=== PATIENT | female | born 2000 | race Caucasian/White ===

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

== ENCOUNTER → 2020-11-01 10:55 | Observation (INO) ==
[2020-11-01 01:00] LABS: Bilirubin,Urine Negative (Negative); Blood,Urine Negative (Negative); Clarity,Urine Clear (Clear); Color,Urine Colorless (Yellow); Glucose,Urine (UA) Normal (Normal); Ketones,Urine Negative (Negative); Leukocyte Esterase,Urine Negative (Negative); Nitrite,Urine Negative (Negative); PH,Urine 6.5 pH Units (5.0-8.0); Protein,Urine Negative (Neg-Trace); Specific Gravity,Urine 1.005 (1.010-1.025); Urobilinogen,Urine Normal (Normal)
[2020-11-01 01:09] LABS: Amphetamine Screen,Urine Negative ng/mL (Cutoff=1000); Barbiturate Screen,Urine Negative ng/mL (Cutoff=200); Benzodiazepines Screen,Urine Negative ng/mL (Cutoff=200); Cannabinoid Screen,Urine Positive ng/mL (Cutoff = 50); Cocaine Screen,Urine Negative ng/mL (Cutoff= 300); Opiate Screen,Urine Negative ng/mL (Cutoff=300); Phencyclidine Screen,Urine Negative ng/mL (Cutoff=25)
[2020-11-01 02:16] LABS: Rubella IgG Antibody POSITIVE (POSITIVE); Varicella Zoster IgG Antibody Negative
[2020-11-01 02:33] LABS: Hepatitis B Surface Antigen Nonreactive (Nonreactive)
[2020-11-01 03:02] LABS: HIV-1&2 Antibody & p24 Ag Nonreactive (Nonreactive)
== END | disposition home or self-care (01) ==
LOC: 1NENULAB
PROVIDERS: ADMIT Advanced Practice Midwife; ATTEND Advanced Practice Midwife

== ENCOUNTER 2021-02-06 15:49 | Observation (INO) ==
[2021-02-06 17:49] LABS: Bilirubin,Urine Negative (Negative); Blood,Urine Negative (Negative); Clarity,Urine Clear (Clear); Color,Urine Colorless (Yellow); Glucose,Urine (UA) Normal (Normal); Ketones,Urine Negative (Negative); Leukocyte Esterase,Urine Small (Negative); Nitrite,Urine Negative (Negative); PH,Urine 7.5 pH Units (5.0-8.0); Protein,Urine Negative (Neg-Trace); RBC,Urine 0-3 per hpf (0-3); Specific Gravity,Urine 1.006 (1.010-1.025); Squamous Epithelial Cell,Urine Few per hpf (None-Few); Urobilinogen,Urine Normal (Normal)
[2021-02-06 20:18] LABS: Basophils % 0.3 %; Eosinophils # 0.1 K/mcL (0.0-0.6); Eosinophils % 0.8 %; Hematocrit 31.9 % (35.3-44.9); Hemoglobin 9.9 g/dL (11.5-15.4); Immature Granulocytes % 0.9 % (0-4); Lymphocytes # 1.6 K/mcL (0.6-4.6); Lymphocytes % 14.9 %; Mean Corpuscular Hemoglobin 26.6 pg (28.0-33.3); Mean Corpuscular Volume 85.8 fL (83.0-100.0); Mean Platelet Volume 9.9 fL (9.4-12.4); Monocytes # 0.7 K/mcL (0.0-1.3); Monocytes % 6.6 %; Platelet Count 243 K/mcL (140-400); Red Blood Count 3.72 M/mcL (3.82-4.97); Red Cell Distribution Width 13.6 % (11.5-14.5); Segmented Neutrophils % 76.5 %; White Blood Count 10.5 K/mcL (4.3-11.1)
[2021-02-06 20:23] LABS: BUN/Creatinine Ratio 7 (6-26); Blood Urea Nitrogen 4 mg/dL (6-20); Calcium 8.5 mg/dL (8.6-10.3); Carbon Dioxide 22 mEq/L (23-29); Chloride 108 mEq/L (98-107); Glucose 74 mg/dL (70-105); Osmolality,Calculated 278 (280-300); Potassium 3.7 mEq/L (3.5-5.1); Sodium 136 mEq/L (136-145); eGFR For African Americans > 60 (> 60); eGFR For Non-African Americans > 60 (> 60)
== END 2021-02-06 19:42 | disposition home or self-care (01) ==
LOC: 1NENULAB
PROVIDERS: ADMIT Registered Nurse; ATTEND Registered Nurse

== ENCOUNTER 2021-03-22 06:56 | Observation (INO) ==
[2021-03-22] MEDS ORDERED: *HR* FentaNYL (PF) 100 MCG/2 ML VIAL ONE (07:47)
[2021-03-22] MEDS ORDERED: *HR* Morphine Sulfate/PF 10 MG/10 ML AMPUL ONE (07:47)
[2021-03-22] MEDS ORDERED: EPHEDrine 50 MG/ML VIAL ONE (07:47)
[2021-03-22] MEDS ORDERED: Ondansetron 4 MG/2 ML VIAL ONE (07:49)
[2021-03-22] MEDS ORDERED: Ketorolac 30 MG/ML VIAL ONE (07:50)
[2021-03-22] MEDS ORDERED: Acetaminophen IV 0 MG/0 ML BAG IVPB ONE (07:50)
[2021-03-22] MEDS ORDERED: Ringers Solution, Lactated 1,000 ML ONE (08:13)
[2021-03-22] MEDS ORDERED: Metoclopramide 10 MG/2 ML VIAL IVP ONE (08:20)
[2021-03-22] MEDS ORDERED: Oxytocin 20 units/ LR 1000 mL 20 UNIT/1,000 ML BAG IVC ONE (08:20)
[2021-03-22] MEDS ORDERED: Gentamicin 280 MG in 0.9 % Sodium Chloride 100 ML IVPB ONE (08:20)
[2021-03-22] MEDS ORDERED: Ringers Solution, Lactated 1,000 ML IVC ONE (08:20)
[2021-03-22] MEDS ORDERED: Famotidine 20 MG/2 ML VIAL IVP ONE (08:20)
[2021-03-22] MEDS ORDERED: Clindamycin 900 MG/50 ML 900 MG/50 ML IV.SOLN IVPB ONE (08:20)
[2021-03-22 08:51] LABS: Basophils % 0.2 %; Eosinophils # 0.1 K/mcL (0.0-0.6); Eosinophils % 0.5 %; Hematocrit 33.6 % (35.3-44.9); Hemoglobin 10.3 g/dL (11.5-15.4); Immature Granulocytes % 0.7 % (0-4); Lymphocytes # 2.1 K/mcL (0.6-4.6); Lymphocytes % 22.5 %; Mean Corpuscular HGB Conc 30.7 g/dL (31.6-35.5); Mean Corpuscular Hemoglobin 25.2 pg (28.0-33.3); Mean Corpuscular Volume 82.2 fL (83.0-100.0); Mean Platelet Volume 10.7 fL (9.4-12.4); Monocytes # 0.9 K/mcL (0.0-1.3); Neutrophils # 6.1 K/mcL (1.6-8.9); Platelet Count 250 K/mcL (140-400); Red Blood Count 4.09 M/mcL (3.82-4.97); Red Cell Distribution Width 15.1 % (11.5-14.5); Segmented Neutrophils % 66.1 %; White Blood Count 9.2 K/mcL (4.3-11.1)
[2021-03-22 09:26] LABS: Influenza A PCR Negative (Negative); Influenza B PCR Negative (Negative); Resp. Syncytial Virus PCR Negative (Negative)
[2021-03-22 09:32] LABS: SARS-CoV-2 by PCR (In House) Negative (Negative)
[2021-03-22 11:35] LABS: Amphetamine Screen,Urine Negative ng/mL (Cutoff=1000); Barbiturate Screen,Urine Negative ng/mL (Cutoff=200); Benzodiazepines Screen,Urine Negative ng/mL (Cutoff=200); Cannabinoid Screen,Urine Negative ng/mL (Cutoff = 50); Cocaine Screen,Urine Negative ng/mL (Cutoff= 300); Opiate Screen,Urine Negative ng/mL (Cutoff=300); Phencyclidine Screen,Urine Negative ng/mL (Cutoff=25)
== END 2021-03-22 11:37 | disposition home or self-care (01) | DRG 566 ==
LOC: INTOOBSV 06:56 → 1NENULAB 06:56 → EDSTATUS 10:00
PROVIDERS: ADMIT Obstetrics & Gynecology; ATTEND Obstetrics & Gynecology

== ENCOUNTER 2021-04-01 20:10 | Inpatient (IN) ==
[~2021-04-01 20:10] MED LIST changes: +Famotidine 20 MG/2 ML VIAL IVP ONE; -Famotidine 20 MG/2 ML VIAL IVP PRN; +Metoclopramide 10 MG/2 ML VIAL IVP ONE; -Metoclopramide 10 MG/2 ML VIAL IVP PRN; -Ondansetron 4 MG/2 ML VIAL IVP PRN; +Ringers Solution, Lactated 1,000 ML IVC ONE; -metroNIDAZOLE 500 MG TABLET PO ONE
[2021-04-01] MEDS ORDERED: Clindamycin 900 MG/50 ML 900 MG/50 ML IV.SOLN IVPB ONE (20:13)
[2021-04-01] MEDS ORDERED: Promethazine 6.25 MG in Water for inj. (sterile) 20 ML IVPB PRN (20:17)
[2021-04-01] MEDS ORDERED: *HR* HYDROmorphone PF 0.5 MG/0.5 ML SYRINGE IVP PRN (20:17)
[2021-04-01] MEDS ORDERED: Oxytocin 20 units/ LR 1000 mL 20 UNIT/1,000 ML BAG IVC ONE (20:26)
[2021-04-01] MEDS ORDERED: Acetaminophen IV 1,000 MG/100 ML BAG IVPB ONE (20:28)
[2021-04-01] MEDS ORDERED: *HR* FentaNYL (PF) 100 MCG/2 ML VIAL ONE (20:29)
[2021-04-01] MEDS ORDERED: *HR* Morphine Sulfate/PF 10 MG/10 ML AMPUL ONE (20:29)
[2021-04-01] MEDS ORDERED: Ondansetron 4 MG/2 ML VIAL ONE (20:30)
[2021-04-01] MEDS ORDERED: EPHEDrine 50 MG/ML VIAL ONE (20:30)
[2021-04-01 20:34] LABS: Basophils % 0.2 %; Eosinophils % 0.2 %; Hematocrit 32.9 % (35.3-44.9); Hemoglobin 10.1 g/dL (11.5-15.4); Immature Granulocytes % 0.7 % (0-4); Lymphocytes # 1.3 K/mcL (0.6-4.6); Lymphocytes % 14.2 %; Mean Corpuscular HGB Conc 30.7 g/dL (31.6-35.5); Mean Corpuscular Hemoglobin 24.6 pg (28.0-33.3); Mean Platelet Volume 10.2 fL (9.4-12.4); Monocytes # 0.8 K/mcL (0.0-1.3); Monocytes % 7.9 %; Neutrophils # 7.2 K/mcL (1.6-8.9); Platelet Count 259 K/mcL (140-400); Red Blood Count 4.11 M/mcL (3.82-4.97); Red Cell Distribution Width 15.3 % (11.5-14.5); Segmented Neutrophils % 76.8 %; White Blood Count 9.4 K/mcL (4.3-11.1)
[2021-04-01 21:08] LABS: Influenza A PCR Negative (Negative); Influenza B PCR Negative (Negative); Resp. Syncytial Virus PCR Negative (Negative)
[2021-04-01 21:10] LABS: SARS-CoV-2 by PCR (In House) Negative (Negative)
[2021-04-01 21:27] LABS: Amphetamine Screen,Urine Negative ng/mL (Cutoff=1000); Barbiturate Screen,Urine Negative ng/mL (Cutoff=200); Benzodiazepines Screen,Urine Negative ng/mL (Cutoff=200); Cannabinoid Screen,Urine Positive ng/mL (Cutoff = 50); Cocaine Screen,Urine Negative ng/mL (Cutoff= 300); Opiate Screen,Urine Negative ng/mL (Cutoff=300); Phencyclidine Screen,Urine Negative ng/mL (Cutoff=25)
[2021-04-01] MEDS ORDERED: *HR* Midazolam HCl 2 MG/2 ML VIAL ONE (21:27)
[2021-04-01] MEDS ORDERED: *HR* Propofol 200 MG/20 ML VIAL IVP ONE (21:39)
[2021-04-01] MEDS ORDERED: Lidocaine -MPF 2% 5 ML VIAL ONE ×2 (21:40→22:28)
[2021-04-01] MEDS ORDERED: *HR* Succinylcholine 200 MG/10 ML VIAL IVP ONE (21:40)
[2021-04-01] MEDS ORDERED: Ketamine *HR* 500 MG/10 ML MDV ONE (22:08)
[2021-04-01] MEDS ORDERED: Ketorolac 30 MG/ML VIAL ONE (22:41)
[2021-04-01] MEDS ORDERED: Metoclopramide 10 MG/2 ML VIAL IVP PRN (23:40)
[2021-04-01] MEDS ORDERED: Simethicone 80 MG TAB.CHEW PO PRN (23:40)
[2021-04-01] MEDS ORDERED: Ondansetron 4 MG/2 ML VIAL IVP PRN (23:40)
[2021-04-01] MEDS ORDERED: Ringers Solution, Lactated 1,000 ML IVC SCH (23:40)
[2021-04-01] MEDS ORDERED: *HR* HYDROmorphone 20 MG/20 ML PCA IVC PRN (23:40)
[2021-04-02] MEDS: Acetaminophen 325 MG TABLET PO SCH ×2 (01:48→18:29)
[2021-04-02] MEDS: Ibuprofen 600 MG TABLET PO SCH ×3 (01:48→18:28)
[2021-04-02] MEDS: Oxytocin 20 units/ LR 1000 mL 20 UNIT/1,000 ML BAG IVC SCH ×2 (01:57→04:34)
[2021-04-02 05:07] LABS: Basophils % 0.1 %; Hematocrit 26.1 % (35.3-44.9); Immature Granulocytes % 0.6 % (0-4); Lymphocytes # 0.8 K/mcL (0.6-4.6); Lymphocytes % 4.1 %; Mean Corpuscular HGB Conc 31.4 g/dL (31.6-35.5); Mean Corpuscular Volume 79.6 fL (83.0-100.0); Mean Platelet Volume 10.3 fL (9.4-12.4); Monocytes # 0.7 K/mcL (0.0-1.3); Monocytes % 3.6 %; Platelet Count 214 K/mcL (140-400); Red Blood Count 3.28 M/mcL (3.82-4.97); Red Cell Distribution Width 15.1 % (11.5-14.5); Segmented Neutrophils % 91.6 %
[2021-04-02 05:10] LABS: Hemoglobin 8.2 g/dL (11.5-15.4); White Blood Count 18.5 K/mcL (4.3-11.1)
[2021-04-02] MEDS: Prenatal Vit/FA 1 EACH TABLET PO SCH (08:46)
[2021-04-02] MEDS ORDERED: Etonogestrel 68 MG IMPLANT IL PRN (12:20)
[2021-04-02] MEDS: *HR* OxyCODONE Immed Rel 5 MG TABLET PO PRN ×2 (15:01→21:21)
[2021-04-02 15:49] VITALS: O2SAT 97
[2021-04-03] MEDS: Acetaminophen 325 MG TABLET PO SCH ×2 (00:11→06:04)
[2021-04-03] MEDS: Ibuprofen 600 MG TABLET PO SCH ×2 (00:12→06:04)
[2021-04-03] MEDS: *HR* OxyCODONE Immed Rel 5 MG TABLET PO PRN (06:04)
[2021-04-03 08:21] VITALS: BP 92/67; TEMP 98.1
[2021-04-03] MEDS: Prenatal Vit/FA 1 EACH TABLET PO SCH (08:41)
[2021-04-03 10:52] VITALS: PULSE 83
== END 2021-04-03 14:44 | disposition home or self-care (01) | DRG 540 ==
LOC: 1NENULAB → 1NENUOBS 04-02 02:40
PROVIDERS: ADMIT Obstetrics & Gynecology; ATTEND Obstetrics & Gynecology